=== PATIENT | male | born 1965 | race Caucasian/White ===

== ENCOUNTER → 2017-01-21 | Day surgery (SDC) | payer MEDICARE, MEDICAID ==
[2017-01-21] VITALS (12 sets, daily range): BP systolic 115–141; BP diastolic 56–96
[~2017-01-21] VITALS: Ht 175.3 cm; Wt 74.8 kg
[~2017-01-21] MED LIST: ACYCLOVIR200 MG/5 M ORAL; ALPRAZOLAM0.5 MG PO; ASPIR 8181 MG ORAL; Bacitracin 50000 Units Vial ONE; Bupivacaine 0.25% Inj 30ml INJ ONE; Bupivacaine w/Epi 0.25% 30ml Vial INJ ONE; CYCLOBENZAPRINE10 MG ORAL; Clindamycin 600mg 50 ML IVPB ONE; Clindamycin 600mg in D5W 50ml IV ONE; D5 1/2NS 1,000 ML IV SCH; DiphenhydrAMINE 50mg/ml Inj IVP PRN; EPINEPHrine 1mg/1ml Amp ONE; FOLGARD TABLET1 EAC1 PO; Hydromorphone 0.5mg/0.5ml inj IVP PRN; ISENTRESS400 MG ORAL; Kenalog-40 1ml Vial ONE; Ketorolac 30mg Inj IV PRN; Ketorolac 30mg Inj ONE; LIPITOR80 MG ORAL; LR 1000ml 1,000 ML IVLG SCH; Lidocaine 1% 10mg/ml/Epi 0.005mg/ml 30ml vial INJ ONE; Meperidine 25mg/ml Inj IV PRN; Metoclopramide 10mg/2ml Inj IVP PRN; Midazolam 2mg/2ml Inj IVP PRN; Morphine Sulfate 2mg/ml Inj IVP PRN; Morphine Sulfate PF 0 ML ONE; NAPROXEN250 M1 PO; NIACIN250 M1 PO; NORVIR100 M2 ORAL; NS Irrig 2000ml IRRIG ONE; NS Irrig 4000ml IRRIG ONE; Norco 5mg/325mg tab ORAL PRN; OMEPRAZOLE10 M1 ORAL; Propofol 10mg/ml 20ml IV ONE; Ropivacaine 5mg/ml Vial 20ml INJ ONE; celeBREX 200mg Cap **SURGERY PATIENTS ONLY ORAL ONE; oxyCONTIN 20mg tab ORAL ONE
--- NOTE | 2017-01-21 07:30 | Pre-Procedure Note/Attestation ---
Pre-Procedure Note/Attestation Complete Prior to Procedure Planned Procedure: right Procedure Narrative: knee acl reconstruction and menisectomy Indications for Procedure Pre-Operative Diagnosis: right knee acl tear Attestation I attest that I discussed the nature of the procedure; its benefits; risks and complications; and alternatives (and the risks and benefits of such alternatives ), prior to the procedure, with the patient (or the patient's legal insurance claims representative). I attest that, if there was a reasonable possibility of needing a blood transfusion, the patient (or the patient's legal insurance claims representative) was given the [facility] standardized written summary, pursuant to the Greg[place] Blood Safety Act ([place] Health and Safety Code # 1645, as amended). I attest that I re-evaluated the patient just prior to the surgery and that there has been no change in the patient's H&P, except as documented below: MIYA CERAVNTES Jan 21, 2017 07:30
--- NOTE | 2017-01-21 07:31 | Operative Note - PDOC ---
Operative Note Operative Note Pre-op Diagnosis: right knee acl tear Procedure: right knee acl reconstruction, see op report Post-op Diagnosis: same as pre-op plus Operative Findings: consistent w/pre-op dx studies Anesthesia: general Specimen: none Complications: none Condition: stable Estimated Blood Loss: none Implant(s) used?: Yes MIYA CERVANTES Jan 21, 2017 07:31
--- NOTE | 2017-01-21 10:01 | Anethesia Preoperative Eval ---
Anesthesia Pre-op PMH/ROS General Date of Evaluation: Jan 21, 2017 Time of Evaluation: 09:05 Anesthesiologist: Faiza ASA Score: ASA 3 Mallampati Score Class I : Soft palate, uvula, fauces, pillars visible Class II: Soft palate, uvula, fauces visible Class III: Soft palate, base of uvula visible Class IV: Only hard plate visible Mallampati Classification: Class II Surgeon: Rashawn Diagnosis: R knee torn ACL Surgical Procedure: R knee arthroscopic ACL repair Anesthesia History: none Family History: no anesthesia problems Allergies: Coded Allergies: PENICILLINS (Verified Allergy, Unknown, 01/20/17) Medications: see eMAR Past Medical History Cardiovascular: Denies: CAD, HTN, AL, arrhythmia, other, valve dz Pulmonary: Denies: COPD, [place], asthma, other Gastrointestinal/Genitourinary: Reports: GERD, Denies: CRI, ESRD, other Neurologic/Psychiatric: Reports: depression/anxiety, Denies: CVA, TIA, dementia, other Endocrine: Denies: DM, hypothyroidism, other, steroids HEENT: Denies: [place] (L), [place] (R), cataract (L), cataract (R), glaucoma, other Hematology/Immune: Reports: other - 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 Exam Physician Exam Last Vital Signs Date Time Temp Pulse Resp B/P Pulse Ox O2 Delivery O2 Flow Rate FiO2 01/21/17 07:14 98.8 64 18 125/77 97 Room Air Constitutional: NAD Neurologic: CN 2-12 intact Cardiovascular: RRR Respiratory: CTA Gastrointestinal: S/NT/ND Airway Exam Mallampati Score: Class II MO: full Neck: flexible ROM: full Teeth: intact Dentures: no lower, no upper Anesthesia Pre-op A/P Labs see chart Studies Pre-op Studies: EKG - NSR Risk Assessment & Plan Assessment: ASA 3 Plan: GA with LMA R femoral nerve block for p/op pain control on surgeon request. Status Change Before Surgery: No Pre-Antibiotics Drug: Clindamycin 600mg. Given Within 1 Hr of Incision: Yes Time Given: 09:42 ARELI PEÑALOZA M.D. Jan 21, 2017 10:01
--- NOTE | 2017-01-21 12:43 | Immediate Post-Op Evaluation ---
Immediate Post-Op Evalulation Immediate Post-Op Evalulation Procedure: R knee arthroscopic ACL repair Date of Evaluation: Jan 21, 2017 Time of Evaluation: 11:22 IV Fluids: 1000 Blood Products: none Estimated Blood Loss: min Urinary Output: none Blood Pressure Systolic: 116 Blood Pressure Diastolic: 57 Pulse Rate: 72 Respiratory Rate: 20 O2 Sat by Pulse Oximetry: 99 Temperature (Fahrenheit): 97.5 Pain Score (1-10): 2 Nausea: No Vomiting: No Complications none Patient Status: reacts, patent, none Hydration Status: adequate ARELI PEÑALOZA M.D. Jan 21, 2017 12:43
--- NOTE | 2017-01-21 15:17 | 48 Hour Post Anesthesia Eval ---
Post Anesthesia Evaluation Procedure: R knee arthroscopic ACL repair Date of Evaluation: Jan 21, 2017 Time of Evaluation: 15:16 Blood Pressure Systolic: 124 0: 56 Pulse Rate: 72 Respiratory Rate: 20 Temperature (Fahrenheit): 97.6 O2 Sat by Pulse Oximetry: 98 Airway: patent Nausea: No Vomiting: No Pain Intensity: 2 Hydration Status: adequate Cardiopulmonary Status: stable Mental Status/LOC: patient returned to baseline Follow-up Care/Observations: n/a Post-Anesthesia Complications: none Follow-up care needed: ready to discharge ARELI PEÑALOZA M.D. Jan 21, 2017 15:17
--- NOTE | 2017-01-21 22:27 | Operative Note - Dictated ---
DATE OF OPERATION: 01/21/2017 PREOPERATIVE DIAGNOSES: 1. Right knee anterior cruciate ligament tear. 2. Right knee lateral meniscus tear. POSTOPERATIVE DIAGNOSES: 1. Right knee anterior cruciate ligament tear. 2. Right knee lateral meniscus tear. PROCEDURES: 1. Right knee anterior cruciate ligament reconstruction with tibialis anterior allograft. 2. Partial lateral meniscectomy. 3. Synovectomy of medial and lateral patellofemoral compartment. SURGEON: Cash Morocho M.D. ANESTHESIA: Femoral adductor block with general. INDICATION FOR PROCEDURE: The patient is a gentleman who has had an injury to his right knee. He had instability and pain. He had MRI, which showed acute anterior cruciate ligament tear and possible lateral meniscal tear. He elected to undergo right anterior cruciate ligament reconstruction with partial lateral meniscectomy. Risks, limitations, expectations, and complications of the procedure were discussed in detail including continued pain, need for future surgery, risk of anesthesia, medical complications, DVT, PE, and mortality risks. All questions were addressed. DESCRIPTION OF PROCEDURE: An informed consent was obtained. The patient was brought to the operating room and placed supine under femoral adductor general anesthesia. Tourniquet was applied to the right proximal thigh. Right leg was prepped and draped in a sterile manner. Time-out was performed. The portal sites were marked down and injected with 0.25% Marcaine with epinephrine. Esmarch was used to exsanguinate the extremity. Inferolateral stab incision was then made. Trocar was introduced into the knee joint. A systematic tour of the knee was performed. There is no significant chondral damage in the patellofemoral compartment. Medial gutter and tissue which was debrided using a shaver. Once that was done, the medial compartment was entered and free of meniscal or chondral damage. Anterior cruciate ligament rupture. Anterior cruciate ligament was debrided down off the bony attachments. Lateral compartment was entered. There is a tear of the middle body of the lateral meniscus. Partial lateral meniscectomy was performed. Once that was done, attention was turned towards the ACL with compression of femoral tunnel was then placed along with the tibial tunnel with tibialis anterior allograft which has been fastened and tensioned on the back table. It was then passed through the tibial tunnel intercondylar notch and femoral tunnel. The patient did have some weakness of the bone making lateral fixation somewhat difficult twice. The lateral anchor pulled through the bone. Therefore, a revision toggle lock was selected with a larger and wider lateral cortical button. This was then placed securely and now the graft was passed through. The knee was then tensioned. An 11 x 30 tibial screw was then selected. Camera was repositioned into the knee joint and there was no prominence of the screw in the intercondylar notch area. At this point, the camera was removed. Portal sites were closed using #1 Vicryl suture, 2-0 Vicryl suture, and 3-0 Monocryl suture. Steri-Strips and a sterile dressing were applied. The patient was awoken and taken to recovery room with stable vital signs. ESTIMATED BLOOD LOSS: Minimal. COMPLICATIONS: None. SPECIMENS: None. IMPLANTS: Includes 1. Tibialis anterior allograft, a regular toggle lock, which was wasted. 2. Revision toggle lock. 3. A 11 x 30 tibial interference screw. Cash Morocho M.D. DR: CARLOS JOB#: [id number] CC:
== END | disposition home or self-care (01) ==
LOC: SUR 06:04
DX: S83.511A Sprain of anterior cruciate ligament of right knee, initial encounter (principal); S83.281A Other tear of lateral meniscus, current injury, right knee, initial encounter; X58.XXXA Exposure to other specified factors, initial encounter; Y92.89 Other specified places as the place of occurrence of the external cause; Y99.9 Unspecified external cause status; K21.9 Gastro-esophageal reflux disease without esophagitis; F32.9 Major depressive disorder, single episode, unspecified; F41.9 Anxiety disorder, unspecified; M47.9 Spondylosis, unspecified; M19.90 Unspecified osteoarthritis, unspecified site; Z88.0 Allergy status to penicillin
CPT/HCPCS: 29881; 29888; 97161; C1713; G8978; G8979; G8980; J0171; J2704; J2795; J3490; 94003; 94150; S0077

== ENCOUNTER → 2017-07-01 | Day surgery (SDC) | payer MEDICARE, MEDICAID ==
[~2017-07-01] VITALS: Ht 30.5 cm; Wt 0.5 kg
[~2017-07-01] MED LIST changes: +Acetaminophen (Non formulary) 100 ML IV ONE; -Bacitracin 50000 Units Vial ONE; -Bupivacaine 0.25% Inj 30ml INJ ONE; -Bupivacaine w/Epi 0.25% 30ml Vial INJ ONE; -Clindamycin 600mg 50 ML IVPB ONE; -DiphenhydrAMINE 50mg/ml Inj IVP PRN; -EPINEPHrine 1mg/1ml Amp ONE; +HYDROmorphone 1mg/ml Carpuject SUBQ PRN; -Kenalog-40 1ml Vial ONE; -Ketorolac 30mg Inj IV PRN; -Ketorolac 30mg Inj ONE; -LR 1000ml 1,000 ML IVLG SCH; -Lidocaine 1% 10mg/ml/Epi 0.005mg/ml 30ml vial INJ ONE; +Meperidine 25mg/0.5ml Inj (FOR RIGORS ONLY) IV PRN; -Meperidine 25mg/ml Inj IV PRN; -Midazolam 2mg/2ml Inj IVP PRN; -Morphine Sulfate 2mg/ml Inj IVP PRN; -Morphine Sulfate PF 0 ML ONE; -NS Irrig 2000ml IRRIG ONE; -NS Irrig 4000ml IRRIG ONE; -Propofol 10mg/ml 20ml IV ONE; -Ropivacaine 5mg/ml Vial 20ml INJ ONE; +Tylenol #3 tab (300mg/30mg) ORAL PRN; +fentaNYL 100 mcg/2 mL IV PRN
--- NOTE | 2017-07-01 07:21 | Pre-Procedure Note/Attestation ---
Pre-Procedure Note/Attestation Complete Prior to Procedure Planned Procedure: left Procedure Narrative: knee bursitis Indications for Procedure Pre-Operative Diagnosis: excision left knee bursa Attestation I attest that I discussed the nature of the procedure; its benefits; risks and complications; and alternatives (and the risks and benefits of such alternatives ), prior to the procedure, with the patient (or the patient's legal student services representative). I attest that, if there was a reasonable possibility of needing a blood transfusion, the patient (or the patient's legal student services representative) was given the [facility] standardized written summary, pursuant to the [place] Blood Safety Act ([place] Health and Safety Code # 1645, as amended). I attest that I re-evaluated the patient just prior to the surgery and that there has been no change in the patient's H&P, except as documented below: MIYA CERVANTES Jul 01, 2017 07:21
--- NOTE | 2017-07-01 07:22 | Operative Note - PDOC ---
Operative Note Operative Note Pre-op Diagnosis: excision left knee bursa Procedure: see op report Post-op Diagnosis: same as pre-op plus Operative Findings: consistent w/pre-op dx studies Anesthesia: MAC Specimen: none Complications: none Condition: stable Estimated Blood Loss: none Implant(s) used?: MIYA Smith Jul 01, 2017 07:22
== END | disposition home or self-care (01) ==
LOC: SUR 08:36
DX: M70.52 Other bursitis of knee, left knee (principal); Z53.20 Procedure and treatment not carried out because of patient's decision for unspecified reasons